=== PATIENT | female | born 1965 | race Caucasian/White ===

== ENCOUNTER 2017-04-20 18:28 | Emergency (ER) | payer OTHER ==
--- NOTE | 2017-04-20 19:06 | UC ---
Lower Extremity/Ankle HPI - HPI Summary HPI Summary: 52 y/o female PMHX DM, dyslipidemia presents to the urgent care c/o LF foot and ankle pain w/ swelling for the past 3 days. Pt states she probably twisted her ankle, but she is not sure. Pain is 5/10 when she walks, lateral malleolus with swelling. She has been taking Oxycodone she has at home for her back problems, but it is not resolving her symptoms. Pt denies fever, SOB, chest pain , N/V/D. - History of Current Complaint Chief Complaint: UCLowerExtremity Stated Complaint: LEFT FOOT PAIN Time Seen by Provider: 04/20/17 18:58 Hx Obtained From: Patient ?: No Onset/Duration: Gradual Onset, Lasting Days, Still Present Severity Initially: Mild Severity Currently: Moderate Pain Intensity: 5 Pain Scale Used: 0-10 Numeric Aggravating Factor(s): Ambulation Alleviating Factor(s): Rest, Elevation Able to Bear Weight: Yes - Risk Factors Gout Risk Factors: Negative, Age Over 40, Diabetes, Hypertension DVT Risk Factors: Negative Septic Arthritis Risk Factor: Negative - Allergies/Home Medications Allergies/Adverse Reactions: Allergies Allergy/AdvReac Type Severity Reaction Status Date / Time Amoxicillin Allergy Rash Verified 04/20/17 18:50 Gabapentin Allergy Swelling Verified 04/20/17 18:50 Clavulanic Acid AdvReac Abdominal Verified 04/20/17 18:50 [From Augmentin] Pain Erythromycin AdvReac Abdominal Verified 04/20/17 18:50 Pain Home Medications: Home Medications Aspirin [Aspirin 81 MG TAB] 81 mg PO DAILY 04/20/17 [History Confirmed 04/20/17] Atorvastatin* [Lipitor 40 MG*] 40 mg PO QPM 04/20/17 [History Confirmed 04/20/17 ] Docusate Sodium [Stool Softener] 100 mg PO DAILY 04/20/17 [History Confirmed ] Ferrous Sulfate TAB* 325 mg PO DAILY 04/20/17 [History Confirmed 04/20/17] HYDROcodone/ACETAMIN 5-325 MG* [[place] 5-325 TAB*] 1 tab PO Q6H PRN 04/20/17 [ History Confirmed 04/20/17] Metformin HCl [Metformin HCl ER] 500 mg PO DAILY 04/20/17 [History Confirmed ] Nitroglycerin TAB 0.4 MG* 0.4 mg SL . NEEDED PRN 04/20/17 [History Confirmed 04/20/17] Omeprazole CAP* [Prilosec CAP* 20 MG] 20 mg PO DAILY 04/20/17 [History Confirmed 04/20/17] Probiotic Product [Probiotic] 1 tab PO DAILY 04/20/17 [History Confirmed ] Ranolazine (Nf) [Ranexa] 1,000 mg PO BID 04/20/17 [History Confirmed 04/20/17] Venlafaxine CAP (NF) [Effexor CAP (NF)] 75 mg PO DAILY 04/20/17 [History Confirmed 04/20/17] Venlafaxine ER (NF) [Effexor ER (NF)] 150 mg PO DAILY 04/20/17 [History Confirmed 04/20/17] clonazePAM TAB(*) [Klonopin TAB(*)] 0.5 mg PO BID 04/20/17 [History Confirmed ] traZODone TAB* [Desyrel TAB*] 100 mg PO BEDTIME 04/20/17 [History Confirmed ] PMH/Surg Hx/FS Hx/Imm Hx Previously Healthy: Yes Endocrine History: Diabetes, Dyslipidemia Cardiovascular History: Hypertension, Myocardial Infarction - w/ stent palcement 2 years ago Other Cancer History: Vulva cancer - Surgical History Surgical History: Yes Surgery Procedure, Year, and Place: [facility] stent oct 2014 OK FOR UP TO 3T 720G/ CM(in normal operating mode), vulva cancer syrgery,BILATERAL carpal tunnel,tubal - Family History Known Family History: Positive: Cardiac Disease, Hypertension, Diabetes - Social History Occupation: Disabled Lives: With Family Alcohol Use: None Substance Use Type: Prescribed Smoking Status (MU): Former Smoker When Did the Patient Quit Smoking/Using Tobacco: 09/08/2015 Review of Systems Constitutional: Negative Skin: Negative Eyes: Negative ENT: Negative Respiratory: Negative Cardiovascular: Negative Gastrointestinal: Negative Genitourinary: Negative Motor: Negative Neurovascular: Negative Musculoskeletal: Other: - LF ankle and foot pain s/p twisting ankle Neurological: Negative Psychological: Negative All Other Systems Reviewed And Are Negative: Yes Physical Exam Triage Information Reviewed: Yes Appearance: Well-Appearing, No Pain Distress, Well-Nourished, Obese Vital Signs: Initial Vital Signs Temp 97.7 F 04/20/17 18:38 Pulse 103 04/20/17 18:38 Resp 24 04/20/17 18:38 BP 141/95 04/20/17 18:38 Pulse Ox 98 04/20/17 18:38 Vital Signs Reviewed: Yes Eye Exam: Normal Eyes: Positive: Conjunctiva Clear - PERRLA, EOMI ENT Exam: Normal ENT: Positive: Normal ENT inspection, Hearing grossly normal, Pharynx normal, TMs normal Dental Exam: Normal Neck exam: Normal Neck: Positive: Supple, Nontender, No Lymphadenopathy Respiratory Exam: Normal Respiratory: Positive: Chest non-tender, Lungs clear, Normal breath sounds Cardiovascular Exam: Normal Cardiovascular: Positive: RRR, No Murmur, Pulses Normal, Brisk Capillary Refill Abdominal Exam: Normal Abdomen Description: Positive: Nontender, No Organomegaly, Soft. Negative: CVA Tenderness (R), CVA Tenderness (L) Bowel Sounds: Positive: Present Musculoskeletal: Positive: Other: - LF ankle and left foot with FROM, moderate swelling at the anterior aspect of lateral malleoulus with point tenderness on palapation. Positve pulses, capillary refill intact, sensation WNL, Pt can ambulate w/o any difficulty Neurological Exam: Normal Psychological Exam: Normal Skin Exam: Normal Lower Extremity Course/Dx - Course Course Of Treatment: 52 y/o female PMHX DM, dyslipidemia presents to the urgent care c/o LF foot and ankle pain w/ swelling for the past 3 days. Pt states she probably twisted her ankle, but she is not sure. Pain is 5/10 when she walks, lateral malleolus with swelling. She has been taking Oxycodone she has at home for her back problems, but it is not resolving her symptoms. Pt denies fever, SOB, chest pain, N/V/D. LF ankle and foot X ray ordered: Impression: PT advised to continue taking the Oxycodone and tylenol to alleviate symptoms of pain and swelling. Pt ankle immobilized with a Gel splint and herberth bandage. Advised RICE and f/u with PCP in 1 week if not improvement of symptoms. - Differential Dx/Diagnosis Differential Diagnosis/HQI/PQRI: Arthritis, Bursitis, Contusion, Fracture ( Closed), Sprain, Strain Provider Diagnoses: 1- Acute Left ankle. 2- Acute foot pain w/ spur. 2- elevated blood pressure w/o Hx of HTN Discharge - Discharge Plan Condition: Stable Disposition: HOME Patient Education Materials: Ankle Sprain (ED), Heel Spur (ED) Referrals: Ese Lovelace PA [Primary Care Provider] - 1 Week Additional Instructions: 1-Please continue taking the oxycodone to alleviate pain. Keep your foot immobilizes, apply ice and rest. F/u with your PCP for further evaluation and treatment is symptoms do not resolve in 1 week. 2- Your BP is elevated today, please decrease salt in your diet and monitor your BP at home if it continues to be elevated please f/u with your PCP for further management.
--- NOTE | 2017-04-20 20:36 | RAD ---
Indication: Left ankle pain and foot pain. 3 views of the left foot demonstrates no fracture. No other bone or joint abnormality is identified. IMPRESSION: No fracture of the left foot is noted.
--- NOTE | 2017-04-20 20:37 | RAD ---
Indication: Left ankle pain. 3 views of left ankle demonstrates no definite fracture. Posterior and inferior calcaneal spur is noted. Mild soft tissue swelling is noted. IMPRESSION: No definite fracture is noted.
[2017-04-20 20:43] VITALS: BP 143/89
== END 2017-04-20 20:53 | disposition home or self-care (01) ==
LOC: UCCORT 18:28
DX: S93.402A Sprain of unspecified ligament of left ankle, initial encounter (principal); X58.XXXA Exposure to other specified factors, initial encounter; Y93.9 Activity, unspecified; Y99.9 Unspecified external cause status; M77.51 Other enthesopathy of right foot and ankle; E11.9 Type 2 diabetes mellitus without complications; Z79.84 Long term (current) use of oral hypoglycemic drugs; I10 Essential (primary) hypertension; E78.5 Hyperlipidemia, unspecified; I25.2 Old myocardial infarction; Z98.62 Peripheral vascular angioplasty status; Z88.1 Allergy status to other antibiotic agents; Z88.8 Allergy status to other drugs, medicaments and biological substances
CPT/HCPCS: 99213; G0463

== ENCOUNTER 2021-08-13 05:31 | Observation (INO) ==
[2021-08-13] MEDS ORDERED: Buffered Lidocaine 1% SYRIN 1 ml INTRADERM ONE (06:00)
[2021-08-13] MEDS ORDERED: Lactated Ringers 1000 ml BAG 1,000 ML IV SCH (06:00)
[2021-08-13] MEDS ORDERED: Clindamycin 900 MG/D5W BAG 900 MG/50 ML BAG IVPB ONE (06:04)
[2021-08-13] MEDS ORDERED: ceFAZolin VIAL VIAL ONE (07:06)
[2021-08-13] MEDS ORDERED: Lidocaine 1% w EPI 1:100,000 MDV 20 ML VIAL ONE (07:07)
[2021-08-13] MEDS ORDERED: Propofol 10 MG/ML 20 ML BTL ONE ×2 (07:24→09:32)
[2021-08-13] MEDS ORDERED: Midazolam 2 mg/2 ml VIAL 1 mg/ml 2 ml VIAL (2 mg) ONE (07:25)
[2021-08-13] MEDS ORDERED: fentaNYL 250 mcg/5 ml 50 MCG/ML 5 ml VIAL (250 MCG) ONE ×2 (07:25→09:26)
[2021-08-13] MEDS ORDERED: Phenylephrine IV 10 MG/ML 1 ml VIAL ONE (07:27)
[2021-08-13] MEDS ORDERED: Succinylcholine 200 mg VIAL 20 mg/ml 10 ml VIAL (200 mg) ONE (07:30)
[2021-08-13] MEDS ORDERED: Propofol 10 mg/ml 100 ML BTL 0 ML ONE (07:30)
[2021-08-13] MEDS ORDERED: Rocuronium 50 mg VIAL 10 mg/ml 5 ml VIAL (50 mg) ONE (07:36)
[2021-08-13] MEDS ORDERED: Remifentanil 2 MG VIAL ONE (07:37)
[2021-08-13] MEDS ORDERED: Clindamycin VIAL 8 ML ONE (08:07)
[2021-08-13] MEDS ORDERED: Ondansetron 4 mg VIAL 2 MG/ML 2 ml VIAL ONE (08:29)
[2021-08-13] MEDS ORDERED: Dexamethasone IV 4 MG/ML VIAL 1 ml VIAL ONE (08:29)
[2021-08-13] MEDS ORDERED: HYDROmorphone 0.5 MG/0.5 ML SYRINGE ONE ×2 (08:51)
[2021-08-13] MEDS ORDERED: Propofol 10 mg/ml 100 ML BTL 200 ML ONE (09:35)
[2021-08-13] MEDS ORDERED: Acetaminophen IV 1 GM/100ML 100 ML IV ONE (10:06)
[2021-08-13] MEDS ORDERED: Ondansetron 4 mg VIAL 2 MG/ML 2 ml VIAL IV PRN (10:38)
[2021-08-13] MEDS ORDERED: Polyethylene Glycol 3350 17 GM PACKET PO PRN (10:43)
[2021-08-13] MEDS ORDERED: Benzocaine/Menthol LOZ PO PRN (10:43)
[2021-08-13] MEDS ORDERED: Morphine 2 MG/ML SYRINGE IV PRN (10:43)
[2021-08-13] MEDS ORDERED: NS 0.9% 1000 ml BAG 1,000 ML IV SCH (10:45)
[2021-08-13] MEDS ORDERED: Dextrose 50% Syringe 50 ml 25 GM/50 ML SYRINGE IV PUSH PRN (10:50)
[2021-08-13] MEDS: HYDROcodone/ACETAMIN 5/325 mg TAB PO SCH ×2 (13:57→22:06)
[2021-08-13] MEDS: Clindamycin 900 MG/D5W BAG 900 MG/50 ML BAG IVPB SCH (17:07)
[2021-08-13] MEDS: Acetaminophen IV 1 GM/100ML 100 ML IV SCH (18:04)
[2021-08-13] MEDS: Magnesium Hydroxide LIQ 30 ML UDC PO SCH (22:05)
[2021-08-14] MEDS: Clindamycin 900 MG/D5W BAG 900 MG/50 ML BAG IVPB SCH ×2 (01:02→08:10)
[2021-08-14] MEDS: Acetaminophen IV 1 GM/100ML 100 ML IV SCH (02:13)
[2021-08-14 07:52] VITALS: BP 118/79
[2021-08-14] MEDS: HYDROcodone/ACETAMIN 5/325 mg TAB PO SCH (08:11)
[2021-08-14] MEDS: Magnesium Hydroxide LIQ 30 ML UDC PO SCH (08:13)
[2021-08-14] MEDS ORDERED: DULoxetine DR 60 mg CAP PO SCH (09:00)
[2021-08-14] MEDS ORDERED: Vitamin THERAPEUTIC TAB PO SCH (09:00)
[2021-08-17] MEDS ORDERED: BUPRENORPHINE TRANSDERM SCH (09:00)
== END 2021-08-14 11:35 | disposition home or self-care (01) ==
LOC: INTOOBSV 05:31 → AA 05:31 → SSU 11:59
PROVIDERS: ADMIT Neurological Surgery; ATTEND Neurological Surgery